=== PATIENT | female | born 1980 | race African-American/Black ===

== ENCOUNTER 2017-05-16 02:38 | Emergency (ER) | payer OTHER ==
[~2017-05-16 02:38] MED LIST: CARAFATE1 G/10 ML PO; PRILOSEC20 MG PO
[2017-05-16 04:08] LABS: BASOPHIL 0.3 % (0-2); HCT 35.1 % (37.0-47.0); HGB 11.1 g/dl (12.5-16.0); LYMPHOCYTE 50.9 % (15-48); MCH 28.3 pg (25.0-31.0); MCHC 31.6 g/dL (32.0-36.0); MCV 89.5 fL (78.0-100.0); MONOCYTE 8.4 % (0-12); MPV 11.2 fL (6.0-9.5); NEUTROPHIL 38.4 % (41-80); PLT 248 K/uL (150-400); RBC 3.92 M/uL (4.20-5.40); RDW 13.8 % (11.5-14.0); WBC 7.5 K/uL (4.0-10.5)
[2017-05-16 04:28] LABS: BILIRUBIN - TOTAL 0.3 mg/dL (0.1-1.0); CREATININE 0.7 mg/dL (0.5-1.0); GLOBULIN (CALCULATION) 3.2 g/dL (2.2-4.2); POTASSIUM 3.7 mmol/L (3.5-5.1); TOTAL PROTEIN 7.2 g/dL (6.4-8.3)
== END 2017-05-16 05:21 | disposition home or self-care (01) ==
LOC: FER 02:38
PROVIDERS: Emergency Medicine Emergency Medical Services
DX: R10.13 Epigastric pain (principal); R11.0 Nausea; K21.9 Gastro-esophageal reflux disease without esophagitis; I10 Essential (primary) hypertension; Z90.49 Acquired absence of other specified parts of digestive tract; Z87.11 Personal history of peptic ulcer disease
CPT/HCPCS: 36415; 71010; 80053; 82150; 83690; 85025; C9113; J1170; J1885; J2405

== ENCOUNTER 2020-12-02 01:22 | Emergency (ER) | payer OTHER ==
[~2020-12-02 01:22] MED LIST changes: +IBUPROFEN800 MG PO; +NAPROXEN500 MG PO; +PERCOCET 5-3251 EACH PO; +ROBAXIN750 MG PO
[2020-12-02 03:46] LABS: BASOPHIL 0.3 % (0-2); EOSINOPHIL 0.5 % (0-5); HCT 40.5 % (37.0-47.0); HGB 12.4 g/dl (12.5-16.0); LYMPHOCYTE 26.2 % (15-48); MCH 27.5 pg (25.0-31.0); MCHC 30.6 g/dL (32.0-36.0); MCV 89.8 fL (78.0-100.0); MONOCYTE 5.9 % (0-12); MPV 11.2 fL (6.0-9.5); NEUTROPHIL 66.8 % (41-80); NRBC 0; PLT 281 K/uL (150-400); RBC 4.51 M/uL (4.20-5.40); RDW 13.3 % (11.5-14.0); WBC 11.9 K/uL (4.0-10.5)
[2020-12-02 04:05] LABS: INR 1.01 (0.9-1.2); PROTHROMBIN TIME 12.6 SECONDS (11.4-13.6)
[2020-12-02 04:06] LABS: PTT 29.2 SECONDS (22.2-34.7)
[2020-12-02 04:07] LABS: D-DIMER 1.27 ug/mLFEU (0.00-0.41)
[2020-12-02 04:11] LABS: ALBUMIN 3.7 g/dL (3.4-5.0); BILIRUBIN - TOTAL 0.3 mg/dL (0.2-1.0); BUN/CREAT RATIO (CALC) 13.3 RATIO; CREATININE 0.75 mg/dL (0.51-0.95); GLOBULIN (CALCULATION) 5.3 g/dL; POTASSIUM 3.6 mmol/L (3.5-5.1)
[2020-12-02 04:48] LABS: CORONAVIRUS 2019 SARS-COV-2 NEGATIVE (NEGATIVE); INFLUENZA A NAA NEGATIVE (NEGATIVE)
[2020-12-02] MEDS ORDERED: NORCO 5-325 TA1 EAC1 PO (08:08)
== END 2020-12-02 08:32 | disposition home or self-care (01) ==
LOC: FER 01:22
PROVIDERS: Emergency Medicine Emergency Medical Services
DX: R07.89 Other chest pain (principal); R06.02 Shortness of breath; I10 Essential (primary) hypertension; Z87.19 Personal history of other diseases of the digestive system; Z79.899 Other long term (current) drug therapy; Z20.822 Contact with and (suspected) exposure to COVID-19
CPT/HCPCS: 36415; 71045; 71275; 80053; 83690; 84484; 85025; 85379; 85610; 85730; 87339; 93005; J1170; J1885; J2405; Q9967; U0002

== ENCOUNTER 2021-02-04 01:24 | Emergency (ER) | payer OTHER ==
[~2021-02-04 01:24] MED LIST changes: +NORCO 5-325 TA1 EAC1 PO
[2021-02-04 05:01] LABS: CKMB <0.5 ng/mL (0.0-3.6)
[2021-02-04 05:02] LABS: ALBUMIN 3.7 g/dL (3.4-5.0); BILIRUBIN - TOTAL 0.5 mg/dL (0.2-1.0); CREATININE 0.71 mg/dL (0.51-0.95); FT4 (FREE T4) 0.95 ng/dL (0.76-1.46); GLOBULIN (CALCULATION) 4.6 g/dL; POTASSIUM 3.6 mmol/L (3.5-5.1); TOTAL PROTEIN 8.3 g/dL (6.4-8.2)
[2021-02-04 05:03] LABS: BASOPHIL 0.5 % (0-2); EOSINOPHIL 1.3 % (0-5); HCT 37.7 % (37.0-47.0); HGB 11.9 g/dl (12.5-16.0); LYMPHOCYTE 42.1 % (15-48); MCH 27.7 pg (25.0-31.0); MCHC 31.6 g/dL (32.0-36.0); MCV 87.7 fL (78.0-100.0); MONOCYTE 6.8 % (0-12); MPV 11.3 fL (6.0-9.5); NEUTROPHIL 48.9 % (41-80); PLT 293 K/uL (150-400); RDW 13.5 % (11.5-14.0); WBC 9.7 K/uL (4.0-10.5)
[2021-02-04] MEDS ORDERED: DIAZEPAM 5MG TAB5 MG PO (05:53)
[2021-02-04] MEDS ORDERED: MEDROL 4MG DOSEP4 MG PO (05:53)
== END 2021-02-04 06:07 | disposition home or self-care (01) ==
LOC: FER 01:24
PROVIDERS: Emergency Medicine Emergency Medical Services
DX: R07.89 Other chest pain (principal); R06.02 Shortness of breath; I10 Essential (primary) hypertension; Z79.899 Other long term (current) drug therapy; Z98.890 Other specified postprocedural states
CPT/HCPCS: 36415; 71045; 80053; 82550; 82553; 83690; 84439; 84443; 84484; 84703; 85025; 87339; 93005

== ENCOUNTER 2022-01-13 08:16 | Emergency (ER) | payer OTHER ==
[~2022-01-13 08:16] MED LIST changes: +DIAZEPAM 5MG TAB5 MG PO; +MEDROL 4MG DOSEP4 MG PO
[2022-01-13] MEDS ORDERED: ULTRAM50 MG PO (10:10)
[2022-01-13] MEDS ORDERED: MOBIC15 MG PO (10:10)
[2022-01-13] MEDS ORDERED: ROBAXIN750 MG PO (10:10)
== END 2022-01-13 10:27 | disposition home or self-care (01) ==
LOC: FER 08:16
DX: S46.012A Strain of muscle(s) and tendon(s) of the rotator cuff of left shoulder, initial encounter (principal); I10 Essential (primary) hypertension; E78.5 Hyperlipidemia, unspecified; Z79.899 Other long term (current) drug therapy; X58.XXXA Exposure to other specified factors, initial encounter; Y92.89 Other specified places as the place of occurrence of the external cause
CPT/HCPCS: 73030

== ENCOUNTER 2022-03-11 23:04 | Emergency (ER) | payer OTHER ==
[~2022-03-11 23:04] MED LIST changes: +MOBIC15 MG PO; +ULTRAM50 MG PO
[2022-03-12 01:29] LABS: BASOPHIL 0.4 % (0-2); EOSINOPHIL 0.4 % (0-5); HCT 40.3 % (37.0-47.0); HGB 12.6 g/dl (12.5-16.0); LYMPHOCYTE 28.5 % (15-48); MCH 27.8 pg (25.0-31.0); MCHC 31.3 g/dL (32.0-36.0); MONOCYTE 6.6 % (0-12); MPV 11.1 fL (6.0-9.5); NEUTROPHIL 63.8 % (41-80); NRBC 0; PLT 348 K/uL (150-400); RBC 4.53 M/uL (4.20-5.40); RDW 13.2 % (11.5-14.0); WBC 10.3 K/uL (4.0-10.5)
[2022-03-12 01:57] LABS: BILIRUBIN - TOTAL 0.4 mg/dL (0.2-1.0); BUN/CREAT RATIO (CALC) 12.5 RATIO; CREATININE 0.72 mg/dL (0.51-0.95); GLOBULIN (CALCULATION) 4.8 g/dL; POTASSIUM 3.5 mmol/L (3.5-5.1); TOTAL PROTEIN 8.8 g/dL (6.4-8.2)
[2022-03-12 03:04] LABS: BILIRUBIN NEGATIVE (NEGATIVE); BLOOD NEGATIVE Ery/uL (NEGATIVE); CLARITY CLEAR (CLEAR); GLUCOSE (U) NORMAL (NORMAL); LEUKOCYTES TRACE Leu/uL (NEGATIVE); NITRITE NEGATIVE (NEGATIVE); PROTEIN NEGATIVE (NEGATIVE); UROBILINOGEN 0.2 mg/dL (0.2-1.0)
[2022-03-12 03:08] LABS: COLOR STRAW (YELLOW)
[2022-03-12 03:10] LABS: BACTERIA 1+
== END 2022-03-12 04:50 | disposition home or self-care (01) ==
LOC: FER 23:04
PROVIDERS: Emergency Medicine
DX: K59.00 Constipation, unspecified (principal); R11.0 Nausea
CPT/HCPCS: 36415; 80053; 81001; 82150; 83690; 85025; J1170; J1885; J2405; J7030; Q9967